=== PATIENT | female | born 1985 | race Caucasian/White ===

== ENCOUNTER 2021-03-28 13:42 | Emergency (ER) | payer OTHER ==
--- NOTE | 2021-03-28 14:01 | EDM.PDOC ---
ED HPI GENERAL MEDICAL PROBLEM - General Chief Complaint: Head Injury Stated Complaint: "hit head" Time Seen by Provider: 03/28/21 13:50 Source of Information: Reports: Patient, Old Records ([facility] EMR. No paper hospital chart available.) History Limitations: Reports: No Limitations - History of Present Illness INITIAL COMMENTS - FREE TEXT/NARRATIVE: The patient was brought to the emergency room via transport vehicle from [facility] for evaluation of a Workmen's Compensation injury, which occurred at about 1:35 PM this afternoon. The patient initially hit her head on a cab carrier and complained of 10/10 sharp pain with some brief nausea and dizziness with ice packs subsequently applied by the patient and resolution of the above symptoms with exception of mild persisting 3/10 scalp tenderness. No history of fall, loss of consciousness, change in mental status, neurological deficits, or other complaints or injuries. No history of recent headaches, visual changes, diplopia, or other change in neurological status, although some nonspecific mild photophobia. The patient denies any chest pain/pressure, heart flutter, orthostasis, orthopnea, diaphoresis, paresthesias, recent decreased exercise tolerance, or any other anginal-type symptoms. No recent history of abdominal pain, heartburn, emesis diarrhea, melena, gross hematochezia, or any food intolerance, including fatty foods, etc.. The patient also denies any recent fever, cough, wheezing, dyspnea, etc.. Onset: Today, Sudden Onset Date: 03/28/21 Onset Time: 12:55 Duration: Improving Location: Reports: Head. Denies: Face, Neck, Chest, Abdomen, Back, Pelvis, Upper Extremity, Left, Upper Extremity, Right, Radiates to Quality: Reports: Same as Previous Episode, Sharp Severity: Moderate Improves with: Reports: Cold Therapy (As above) Worsens with: Reports: None Context: Reports: Trauma (As above). Denies: Sick Contact Associated Symptoms: Reports: Nausea/Vomiting (As above). 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 [No Known Home Meds] 03/28/21 [History] Past Medical History HEENT History: Reports: Impaired Vision, Other (See Below) Other HEENT History: Patient does wear glasses. 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 Amenorrhea secondary to current Norplant therapy Musculoskeletal History: Reports: Arthritis, Back Pain, Chronic, Osteoarthritis, Other (See Below) Other Musculoskeletal History: Partial right shoulder rotator cuff tear in 2018. Neurological History: Reports: Concussion, Head Trauma, Other (See Below) Other Neuro History: Previous head concussion in June 2020. - Infectious Disease History Infectious Disease History: Denies: Novel Coronavirus - Past Surgical History Neurological Surgical History: Reports: Discectomy, Laminectomy, Lumbar Spine, Other (See Below) Other Neurological Surgeries/Procedures: Discectomy of the lumbar spine in 2018. - Past Imaging History Past Imaging History: Reports: MRI (Right shoulder on 03/25/2018 and 04/27/2014.) Social & Family History - Tobacco Use Tobacco Use Status *Q: Current Every Day Tobacco User Tobacco Use Within Last Twelve Months: Cigarettes Years of Tobacco use: 21 Packs/Tins Daily: 1 Packs/Tins Daily Comment: Patient started smoking at age 15. Used Tobacco, but Quit: No Smoking Cessation Information Provided To Patient: Yes Second Hand Smoke Exposure: Yes Source of Second Hand Smoke Exposure: smokes Second Hand Smoke Education Provided: Yes - Living Situation & Occupation Living situation: Reports: (2017, 2 children), with Family Occupation: Employed ([employer]) ED ROS GENERAL - Review of Systems Review Of Systems: Comprehensive ROS is negative, except as noted in HPI. ED EXAM, HEAD INJURY - Physical Exam Exam: See Below Exam Limited By: No Limitations General Appearance: Alert, WD/WN, No Apparent Distress Head: Normocephalic, Scalp Swelling (2 cm diameter area of mild swelling over the superior mid left occipital area with mild localized tenderness but no laceration, crepitation, deformity, or evidence of fracture), Scalp Tenderness. No: Scalp Lacerations, Scalp Ecchymosis, Scalp Hematoma, Campbell's Sign, Sinus Tenderness, Facial Tenderness, Raccoon Eyes Nexus Criteria: No: Posterior, Midline Cervical Tenderness, Evidence of Intoxi cation, Altered Level of Consciousness, Focal Neurological Deficit, Painful Distraction Injuries Eyes: Bilateral Eye: EOMI, Normal Fundi (No vertigo or nystagmus), Normal Insp ection (Patient is wearing glasses), PERRL Ears: Normal External Exam, Normal Canal, Hearing Grossly Normal, Normal TMs Nose: Normal Inspection, Normal Mucousa, No Blood Throat/Mouth: Normal Inspection, Normal Lips, Normal Teeth, Normal Gums, Normal Oropharynx, Normal Voice, No Airway Compromise Neck: Non-Tender, Full Range of Motion, Normal Alignment, Normal Inspection. No: Muscle Spasm Respiratory: No Respiratory Distress, Lungs Clear, Normal Breath Sounds, No Accessory Muscle Use, Chest Non-Tender. No: Pleural Rub, Retractions Cardiovascular: Normal Peripheral Pulses, Regular Rate, Rhythm, No Edema, No Gallop, No JVD, No Murmur, No Rub. No: Gallop/S3, Gallop/S4, Friction Rub GI/Abdominal Exam: Normal Bowel Sounds, Soft, Non-Tender, No Organomegaly, No Distention, No Abnormal Bruit, No Mass, Pelvis Stable, Other (Obese). No: Guarding (Female) Exam: Deferred Rectal (Female) Exam: Deferred Back Exam: Normal Inspection, Full Range of Motion. No: CVA Tenderness (L), CVA Tenderness (R), Muscle Spasm Extremities: Normal Inspection, Normal Range of Motion, Non-Tender, No Pedal Edema, Normal Capillary Refill. 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 No evidence of facial paresis, tongue deviation, orthostasis, etc.. Excellent reverse thought processes.) DTR: 2+: Patella (R), Patella (L), Achilles (R), Achilles (L) Skin: Normal Color, Warm/Dry. No: Diaphoresis, Ecchymosis - Loren Coma Score Best Eye Response (Loren): (4) Open Spontaneously Best Verbal Response (Loren): (5) Oriented Best Motor Response (Loren): (6) Obeys Commands Loren Total: 15 Course - Vital Signs Last Recorded V/S: Last Vital Signs Temp 36.7 C 03/28/21 13:49 Pulse 92 03/28/21 13:49 Resp 16 03/28/21 13:49 BP 136/80 03/28/21 13:49 Pulse Ox 100 03/28/21 13:49 Vital Signs - 24 hr 03/28/21 13:49 Temperature [ 36.7 C Temporal] Pulse, 92 Peripheral [ Pulse Oximetry] Respiratory 16 Rate Blood Pressure 136/80 [Left Upper Arm ] O2 Sat by Pulse 100 Oximetry - Orders/Labs/Meds Labs: None - Radiology Interpretation Free Text/Narrative:: None Departure - Departure Time of Disposition: 14:30 Disposition: Home, Self-Care 01 Condition: Good Clinical Impression: Tobacco abuse counseling Head contusion Qualifiers: Encounter type: initial encounter Contusion of head detail: scalp Qualified Code(s): S00.03XA - Contusion of scalp, initial encounter Osteoarthritis Qualifiers: Osteoarthritis location: multiple joints Osteoarthritis type: primary Qualified Code(s): M89.49 - Other hypertrophic osteoarthropathy, multiple sites - Discharge Information *PRESCRIPTION DRUG MONITORING PROGRAM REVIEWED*: Not Applicable *COPY OF PRESCRIPTION DRUG MONITORING REPORT IN PATIENT GABO: Not Applicable Instructions: Steps to Quit Smoking, [id number], Health Risks of Smoking, Head Injury, Adult, [id number] Forms: ED Department Discharge Additional Instructions: 1. Follow up with your regular provider in 10-14 days as needed, if symptoms persist. Bring these discharge instructions with you to that visit. 2. Tylenol 650 mg by mouth every 4 hours and/or OTC ibuprofen 2-3 tabs by mouth every 6 hours with food as directed./needed. You may stagger these medications for 48-72 hours only, which essentially means that you are receiving a pain medication about every 2 hours. 3. Ice packs as needed and directed 4. Head precautions as directed-see form. 5. Stop all tobacco use NOEMÍ as directed/per provided information and consider contacting Quit LIne, etc.. 6. Work excuse- See Form 7. Immediately after this visit verify that your cellular telephone's voicemail has been activated and is empty. Also verify that your home telephone's answering machine is operating properly and has space to receive messages. Note that it is sometimes necessary for us to be able to contact you at a later date to discuss your medical care. 8. Please remember that we are ALWAYS here for you and want to answer any questions you may have. Feel free to call the hospital any time and we call you back NOEMÍ. Sepsis Event Note (ED) - Evaluation Sepsis Screening Result: No Definite Risk - Focused Exam Vital Signs: Vital Signs Temp Pulse Resp BP Pulse Ox 03/28/21 13:49 36.7 C 92 16 136/80 100 - Problem List & Annotations (1) Head contusion SNOMED Code(s): 014895169 Code(s): S00.93XA - CONTUSION OF UNSPECIFIED PART OF HEAD, INITIAL ENCOUNTER Status: Acute Priority: High Onset Date: 03/28/21 Annotation/Comment:: Minor head contusion without evidence of concussion. Symptomatic relief as per discharge instructions. [place] work excuse and Workmen's Compensation forms were completed. Head precautions were given. Qualifiers: Encounter type: initial encounter Contusion of head detail: scalp Qualified Code(s): S00.03XA - Contusion of scalp, initial encounter (2) Tobacco abuse counseling SNOMED Code(s): 117539202, 219044643, 985643346 Code(s): Z71.6 - TOBACCO ABUSE COUNSELING Status: Chronic Priority: Medium Annotation/Comment:: Tobacco cessation for the patient and her were strongly encouraged with information provided at discharge. Patient was also counseled on the importance of yearly influenza boosters with the patient not having her influenza booster this past season or a COVID-19 immunization to this point. She did test negative for COVID-19 last week by her history. Covid immunization NOEMÍ was strongly encouraged with the patient not infected with Covid to this point. Continue hygiene precautions as per CDC guidelines, which were also discussed today. - Problem List Review Problem List Initiated/Reviewed/Updated: Yes - Assessment/Plan Assessment:: As above Plan: As above. Extensive precautions were given to the patient, who is in agreement with the treatment plan. See Patient Instructions for further treatment and plan.
== END 2021-03-28 14:33 | disposition home or self-care (01) ==
LOC: LL.ED 13:42
DX: S00.03XA Contusion of scalp, initial encounter (principal); M89.49 Other hypertrophic osteoarthropathy, multiple sites; Z71.6 Tobacco abuse counseling; Z72.0 Tobacco use; W22.8XXA Striking against or struck by other objects, initial encounter; Y99.0 Civilian activity done for income or pay
CPT/HCPCS: 99283